=== PATIENT | female | born 1985 | race Caucasian/White ===

== ENCOUNTER 2016-09-02 08:55 | Emergency (ER) | payer OTHER ==
[~2016-09-02] VITALS: Ht 175.3 cm; Wt 113.2 kg
[2016-09-02 09:03] VITALS: BP 140/93; PULSE 84; RESP 18; TEMP 98.5; O2SAT 99
[2016-09-02] MEDS ORDERED: LAMI200T PO (09:21)
[2016-09-02] MEDS ORDERED: GUAI100S5 PO (09:24)
--- NOTE | 2016-09-02 09:24 | PD ---
HPI Chief Complaint: Cold / Flu Symptoms Time Seen by Provider: 09:21 Travel History International Travel<30 days: No Contact w/Intl Traveler<30days: No Traveled to known affect area: No History of Present Illness HPI The patient is a 30-year-old female who presents emergency department for cough and cold symptoms. The patient states she's had cough and cold symptoms for 3 days with sore throat, sneezing, congestion, and a dry nonproductive cough. She does state the cough keeps her up at night. She denies any vomiting, diarrhea, abdominal pain, myalgias, or arthralgias. The patient's symptoms are moderate, there are no alleviating or exacerbating factors. She denies any sick contacts at home. The patient has been taking asvb-sji-caoeueg cough and cold medications at home without any alleviation of her symptoms. PFSH Past Medical History Bipolar Disorder: Yes Tetanus Vaccination: < 5 Years Influenza Vaccination: No ?: Not LMP: 2 WEEKS 08/24/16 Past Surgical History Surgical History: No Previous Surgery Social History Alcohol Use: No Tobacco Use: No Substance Use: No Allergies-Medications (Allergen,Severity, Reaction): Coded Allergies: No Known Allergies (Verified , 09/02/16) Reported Meds & Prescriptions Reported Meds & Active Scripts Active No Active Prescriptions or Reported Medications Review of Systems Except as stated in HPI: all other systems reviewed are Neg General / Constitutional: No: Fever HENT: Positive: Sore Throat, Congestion, No: Headaches Respiratory: Positive: Cough, No: Shortness of Breath Gastrointestinal: No: Nausea, Vomiting, Diarrhea, Abdominal Pain Musculoskeletal: No: Myalgias Skin: No Rash Physical Exam Narrative GENERAL: Awake, alert, 30-year-old female who appears her stated age and is in no acute respiratory distress. SKIN: Warm and dry. HEAD: Atraumatic. Normocephalic. EYES: Pupils equal and round. No scleral icterus. No injection or drainage. ENT: No nasal bleeding or discharge. TMs are translucent and EACs are clear. Posterior oropharynx reveals cobblestoning but no exudate.. NECK: Trachea midline. No JVD. No meningeal signs. CARDIOVASCULAR: Regular rate and rhythm. No murmur appreciated. RESPIRATORY: No accessory muscle use. Clear to auscultation. Breath sounds equal bilaterally. MUSCULOSKELETAL: No obvious deformities. No clubbing. No cyanosis. No edema. NEUROLOGICAL: Awake and alert. No obvious cranial nerve deficits. Motor grossly within normal limits. Normal speech. PSYCHIATRIC: Appropriate mood and affect; insight and judgment normal. Data Data Last Documented VS Vital Signs Date Time Temp Pulse Resp B/P Pulse Ox O2 Delivery O2 Flow Rate FiO2 09/02/16 09:17 16 99 Room Air 09/02/16 09:03 98.5 84 140/93 MDM Medical Decision Making Medical Screen Exam Complete: Yes Emergency Medical Condition: Yes Medical Record Reviewed: Yes Differential Diagnosis Differential diagnosis includes URI, viral syndrome, pharyngitis, strep pharyngitis, bronchitis, pneumonia, influenza. Narrative Course The patient's history and physical are consistent with URI/viral syndrome. The patient is advised to use [id number] Claritin-D and/or Benadryl as needed. I will prescribe cough medicine to help her sleep at night. She is advised to follow-up with her primary physician and return if symptoms worsen or progress. Diagnosis Primary Impression: Upper respiratory infection Patient Instructions: General Instructions Additional Instructions: Medications as directed. [id number]-[id number] Claritin-D and/or Benadryl as needed. Tylenol and/or Motrin for symptoms. Plenty of fluids to stay hydrated. Follow-up with your primary physician. Med/Other Pt SpecificInfo: Prescription(s) given Scripts Guaifenesin-Codeine Liq 100-10 Mg/5 Ml Soln10 Ml PO Q6H PRN (COUGH) #1 BOTTLE Ref 0 Prov:Ruel Godwin MD 09/02/16 Disposition: 01 DISCHARGE HOME Condition: Stable Ruel Godwin MD Sep 02, 2016 09:24
[2016-12-30] MEDS ORDERED: TOPA25TA8 PO (09:38)
== END 2016-09-02 10:01 | disposition home or self-care (01) ==
LOC: PHED 08:55
DX: J06.9 Acute upper respiratory infection, unspecified (principal); R05 Cough
CPT/HCPCS: 99283